=== PATIENT | male | born 1990 | race Caucasian/White ===

== ENCOUNTER 2023-05-20 22:43 | Inpatient (IN) | payer OTHER ==
[2023-05-21 04:26] LABS: BASO % 1.4 % (0-2.0); EOS % 0.1 % (0-4.5); HEMATOCRIT 29.7 % (35.4-49); HEMOGLOBIN 9.4 GM/dL (11.7-16.9); LYMPH % 4.1 % (8-40); MCH 29.6 pg (25.7-33.7); MCHC 31.7 g/dl (32.0-35.9); MEAN CELL VOLUME 93.2 fl (80-96); MEAN PLT VOLUME 7.1 fl (7.5-11.1); MONO % 6.5 % (3.8-10.2); NEUT % 87.9 % (42.8-82.8); PLATELET COUNT 327 10^3/uL (134-434); RBC 3.18 M/mm3 (4.00-5.60); RDW 21.3 % (11.9-15.9); WHITE BLOOD COUNT 18.7 K/mm3 (4.0-10.0)
[2023-05-21 04:39] LABS: VENOUS BASE EXCESS -4.7 mmol/L (-2-2); VENOUS O2 SATURATION 98.9 % (70-80); VENOUS PCO2 37.7 mmHg (38-52); VENOUS PH 7.352 (7.310-7.410)
[2023-05-21 04:44] LABS: POTASSIUM 4.1 mmol/L (3.5-5.1)
[2023-05-21 04:47] LABS: ALBUMIN 2.1 g/dl (3.4-5.0); BLOOD UREA NITROGEN 10.2 mg/dL (7-18); CALCIUM 8.3 mg/dL (8.5-10.1)
[2023-05-21 04:50] LABS: CREATININE 0.9 mg/dL (0.55-1.3)
[2023-05-21 04:52] LABS: BILIRUBIN,TOTAL 0.4 mg/dL (0.2-1); TOT PROT 4.8 g/dl (6.4-8.2)
[2023-05-21 04:54] LABS: INR 1.37 (0.83-1.09); PROTHROMBIN TIME (PATIENT) 15.8 SEC (9.7-13.0)
[2023-05-21] MEDS: PIPERACILLIN/TAZOB 3.375 GM 3.375 GM in DEXTROSE 5%-WATER - 50 ML IVPB ONE (04:55)
[2023-05-21] MEDS: VANCOMYCIN 1,000 MG in DEXTROSE 5%-WATER - 250 ML IVPB ONE (04:55)
[2023-05-21 04:57] LABS: ACTIVATED PTT 37.9 SECONDS (25.2-36.5)
[2023-05-21] MEDS ORDERED: VANCOMYCIN 1 GRAM (PRE-DOCKED) 1,000 MG/250 ML BAG IVPB ONE (04:57)
[2023-05-21] MEDS ORDERED: PIPERACILLIN/TAZOB 3.375 GM 3.375 GM/50 ML BAG IVPB ONE (04:58)
[2023-05-21] MEDS ORDERED: FUROSEMIDE 40 MG/4 ML INJECTABLE VIAL ONE (08:23)
[2023-05-21] MEDS: FUROSEMIDE 40 MG/4 ML INJECTABLE VIAL IVPUSH ONE (08:29)
[2023-05-21 16:36] VITALS: BMI 47.9
[2023-05-21] MEDS: FAMOTIDINE 20 MG TABLET PO SCH (21:12)
[2023-05-22 03:05] LABS: URINE COLOR YELLOW
[2023-05-22 03:06] LABS: PH,URINE 5.5 (5.0-8.0); URINE APPEARANCE CLOUDY; URINE BILIRUBIN NEGATIVE (NEGATIVE); URINE GLUCOSE (UA) NEGATIVE (NEGATIVE); URINE KETONE NEGATIVE (NEGATIVE); URINE LEUK ESTERASE NEGATIVE (NEGATIVE); URINE NITRITE NEGATIVE (NEGATIVE); URINE PROTEIN 30 (NEGATIVE); URINE UROBILINOGEN 0.2 mg/dL (0.2-1.0)
[2023-05-22 03:07] LABS: EPI CELLS 9.2 /uL (0-25.1); HYALINE CASTS 1.76 /uL (0-3.1); URINE BACTERIA 0.9 /uL (0-1359); URINE RBC 65.3 /uL (0-23.9); URINE WBC 13.6 /uL (0-25.8)
[2023-05-22] MEDS ORDERED: FUROSEMIDE 40 MG/4 ML INJECTABLE VIAL IVPUSH SCH ×2 (09:00→10:00)
[2023-05-22 09:14] LABS: HEMATOCRIT 26.4 % (35.4-49); HEMOGLOBIN 8.3 GM/dL (11.7-16.9); MCHC 31.6 g/dl (32.0-35.9); MEAN PLT VOLUME 7.8 fl (7.5-11.1); PLATELET COUNT 268 10^3/uL (134-434); RBC 2.78 M/mm3 (4.00-5.60); WHITE BLOOD COUNT 10.2 K/mm3 (4.0-10.0)
[2023-05-22 09:23] LABS: POTASSIUM 3.5 mmol/L (3.5-5.1)
[2023-05-22 09:32] LABS: CALCIUM 8.3 mg/dL (8.5-10.1)
[2023-05-22 09:33] LABS: BLOOD UREA NITROGEN 10.2 mg/dL (7-18)
[2023-05-22] MEDS: FUROSEMIDE 40 MG/4 ML INJECTABLE VIAL IVPUSH SCH (09:35)
[2023-05-22 09:36] LABS: CREATININE 0.9 mg/dL (0.55-1.3)
[2023-05-22] MEDS: AMINO ACIDS/PROTEIN HYDROLYS 30 ML LIQUID.PKT PO SCH (09:36)
[2023-05-22 09:37] LABS: TOT PROT 4.5 g/dl (6.4-8.2)
[2023-05-22 09:38] LABS: BILIRUBIN,TOTAL 0.4 mg/dL (0.2-1)
[2023-05-22] MEDS: ACETAMINOPHEN 1000 MG/100 ML BAG IVPB PRN (09:40)
[2023-05-22] MEDS: DOXYCYCLINE HYCLATE 100 MG CAPSULE PO SCH (17:21)
[2023-05-22] MEDS: MELATONIN 1 MG TABLET PO ONE (22:32)
[2023-05-23] MEDS: POTASSIUM CHLORIDE ORAL LIQUID 20 MEQ/15 ML PO ONE (14:47)
[2023-05-23 18:21] LABS: BF WBC & OTHER NUCLEATED CELLS 576 /mm3
[2023-05-23 18:47] LABS: BODY FLUID MACROPHAGES 16 %; BODY FLUID MESOTHELIAL 58 %; BODY FLUID MONOCYTE 8 %
[2023-05-24 11:20] LABS: IRON SERUM 23 ug/dL (50-175)
[2023-05-24 11:21] LABS: TOTAL IRON BINDING CAPACITY 164 ug/dL (250-450)
[2023-05-24 11:24] LABS: POTASSIUM 3.1 mmol/L (3.5-5.1)
[2023-05-24 11:26] LABS: CALCIUM 8.4 mg/dL (8.5-10.1)
[2023-05-24 11:27] LABS: ALBUMIN 2.2 g/dl (3.4-5.0); BLOOD UREA NITROGEN 11.6 mg/dL (7-18)
[2023-05-24 11:30] LABS: CREATININE 0.8 mg/dL (0.55-1.3)
[2023-05-24 11:31] LABS: TOT PROT 4.8 g/dl (6.4-8.2)
[2023-05-24 11:32] LABS: BILIRUBIN,TOTAL 0.5 mg/dL (0.2-1)
[2023-05-24] MEDS: POTASSIUM CHLORIDE ORAL LIQUID 20 MEQ/15 ML PO ONE (12:25)
[2023-05-24] MEDS: KCL 10 MEQ IVPB 10 MEQ/100 ML INFUS.BAG IVPB SCH (12:26)
[2023-05-24 12:33] LABS: N-TERMINAL BNP 498.9 pg/ml (5-125)
[2023-05-24 12:40] LABS: EOS % 0.4 % (0-4.5); HEMATOCRIT 27.2 % (35.4-49); HEMOGLOBIN 8.7 GM/dL (11.7-16.9); LYMPH % 12.3 % (8-40); MCH 29.8 pg (25.7-33.7); MCHC 31.9 g/dl (32.0-35.9); MEAN CELL VOLUME 93.4 fl (80-96); MEAN PLT VOLUME 8.1 fl (7.5-11.1); MONO % 12.6 % (3.8-10.2); NEUT % 72.7 % (42.8-82.8); PLATELET COUNT 219 10^3/uL (134-434); RBC 2.91 M/mm3 (4.00-5.60); RDW 19.9 % (11.9-15.9); WHITE BLOOD COUNT 7.2 K/mm3 (4.0-10.0)
[2023-05-25 07:12] LABS: BASO % 2.6 % (0-2.0); EOS % 0.5 % (0-4.5); HEMATOCRIT 26.8 % (35.4-49); HEMOGLOBIN 8.6 GM/dL (11.7-16.9); LYMPH % 15.2 % (8-40); MCH 29.7 pg (25.7-33.7); MEAN CELL VOLUME 92.6 fl (80-96); MEAN PLT VOLUME 7.6 fl (7.5-11.1); MONO % 12.3 % (3.8-10.2); NEUT % 69.4 % (42.8-82.8); PLATELET COUNT 222 10^3/uL (134-434); RDW 19.8 % (11.9-15.9); WHITE BLOOD COUNT 6.3 K/mm3 (4.0-10.0)
[2023-05-25 07:20] LABS: CHLORIDE 107 mmol/L (98-107); POTASSIUM 3.2 mmol/L (3.5-5.1); SODIUM 141 mmol/L (136-145)
[2023-05-25 07:27] LABS: ALBUMIN 2.2 g/dl (3.4-5.0); ANION GAP 4 mmol/L (4-13); BLOOD UREA NITROGEN 13.8 mg/dL (7-18); CALCIUM 8.3 mg/dL (8.5-10.1); CO2 31 mmol/L (21-32); GLUCOSE,RANDOM 82 mg/dL (74-106); MAGNESIUM 1.6 mg/dL (1.8-2.4)
[2023-05-25 07:30] LABS: CREATININE 0.8 mg/dL (0.55-1.3); SGOT/AST 6 U/L (15-37); SGPT/ALT < 6 U/L (13-61)
[2023-05-25 07:32] LABS: BILIRUBIN,TOTAL 0.4 mg/dL (0.2-1); TOT PROT 4.8 g/dl (6.4-8.2)
[2023-05-25 07:33] LABS: ALK PHOS 87 U/L (45-117)
[2023-05-25] MEDS: MAGNESIUM OXIDE 400 MG TABLET (FP) PO SCH (12:19)
[2023-05-25 15:07] LABS: BODY FLUID ALBUMIN 1.4 g/dL (Not Estab.)
[2023-05-26] MEDS: POTASSIUM CHLORIDE ORAL LIQUID 20 MEQ/15 ML PO ONE (12:15)
[2023-05-27 07:43] LABS: POTASSIUM 3.1 mmol/L (3.5-5.1)
[2023-05-27 07:49] LABS: ALBUMIN 2.3 g/dl (3.4-5.0); BLOOD UREA NITROGEN 19.9 mg/dL (7-18); CALCIUM 8.3 mg/dL (8.5-10.1); MAGNESIUM 1.8 mg/dL (1.8-2.4)
[2023-05-27 07:52] LABS: CREATININE 0.9 mg/dL (0.55-1.3)
[2023-05-27 07:53] LABS: BILIRUBIN,TOTAL 0.5 mg/dL (0.2-1)
[2023-05-27] MEDS: POTASSIUM CHLORIDE ORAL LIQUID 20 MEQ/15 ML PO ONE (08:23)
[2023-05-27] MEDS: IRON SUCROSE INJECTION 200 MG in SODIUM CHLORIDE 100 ML IVPB ONE (10:23)
[2023-05-27] MEDS: POTASSIUM CHLORIDE TABS 20 MEQ TABLET.ER (FP) PO SCH (10:23)
[2023-05-27 15:36] VITALS: RESP 18
[2023-05-28 07:53] LABS: CHLORIDE 112 mmol/L (98-107); SODIUM 144 mmol/L (136-145)
[2023-05-28 07:56] LABS: ALBUMIN 1.9 g/dl (3.4-5.0); BLOOD UREA NITROGEN 16.5 mg/dL (7-18); CO2 31 mmol/L (21-32); GLUCOSE,RANDOM 75 mg/dL (74-106)
[2023-05-28 07:59] LABS: CREATININE 0.7 mg/dL (0.55-1.3); SGOT/AST 6 U/L (15-37); SGPT/ALT < 6 U/L (13-61)
[2023-05-28 08:00] LABS: BILIRUBIN,TOTAL 0.4 mg/dL (0.2-1)
[2023-05-28 08:01] LABS: TOT PROT 4.1 g/dl (6.4-8.2)
[2023-05-28 08:02] LABS: ALK PHOS 71 U/L (45-117)
[2023-05-28 08:09] LABS: ANION GAP 2 mmol/L (4-13); POTASSIUM 2.7 mmol/L (3.5-5.1)
[2023-05-28 11:51] VITALS: BP 131/78; PULSE 108; TEMP 98.1
== END 2023-05-28 12:46 | disposition short-term general hospital (02) | DRG 543 ==
LOC: JER 22:43 → JERBED 05-21 10:04 → J4W 05-21 13:42
PROVIDERS: ADMIT Family Medicine; ATTEND Family Medicine
PROC: 0W9930Z Drainage of Right Pleural Cavity with Drainage Device, Percutaneous Approach (ICD-10-PCS; principal; 2023-05-23)
DX: C49.9 Malignant neoplasm of connective and soft tissue, unspecified (principal); D61.818 Other pancytopenia; J90 Pleural effusion, not elsewhere classified; J98.11 Atelectasis; Z68.42 Body mass index [BMI] 45.0-49.9, adult; E66.01 Morbid (severe) obesity due to excess calories; D64.9 Anemia, unspecified; E88.09 Other disorders of plasma-protein metabolism, not elsewhere classified; E87.6 Hypokalemia
CPT/HCPCS: 0241U-QW; 32557; 36415; 71045-TC-FY; 71275-TC; 80053; 81003; 82042; 82150; 82465; 82728; 82803; 82945; 82962; 83540; 83550; 83605; 83615; 83735; 83880; 83986; 84157; 84478; 84484; 85025; 85027; 85610; 85730; 86850; 86900; 86901; 87040; 87070; 87075; 87086; 87102; 87116; 87205; 87206; 87210; 87635; 88108; 88305-TC; 93005; 93010; 93306-TC; 94010; 94660; 99285-25; J0131; J1756